=== PATIENT | male | born 1930 | race African-American/Black ===

== ENCOUNTER 2016-08-15 10:29 | Emergency (ER) | payer MEDICARE, OTHER ==
[2016-08-15 11:20] LABS: CKMB 1.8 ng/mL (0-6.6); Troponin I 0.039 ng/mL (< 0.028)
[2016-08-15 11:26] LABS: ALT (SGPT) 7 U/L (0-55); AST (SGOT) 16 U/L (5-34); Albumin 4.3 g/dL (3.4-4.8); Alkaline Phosphatase 66 U/L (40-150); Anion Gap 17 mmol/L (10-20); BUN (Urea Nitrogen) 17 mg/dL (8.4-25.7); Bilirubin, Total 1.1 mg/dL (0.2-1.2); Calc. Creatinine Clearance 0 mL/min (70-130); Calcium 9.7 mg/dL (7.8-10.44); Carbon Dioxide 23 mmol/L (23-31); Chloride 103 mmol/L (98-107); Estimated GFR-MDRD 74; Glucose 95 mg/dL (83-110); Protein, Total 8.3 g/dL (5.8-8.1); Sodium 139 mmol/L (136-145)
--- NOTE | 2016-08-15 11:29 | RAD ---
CHEST ONE VIEW: History: Wheezing, dyspnea. Comparison: 06-01-10 FINDINGS: The cardiac silhouette remains enlarged and magnified. Pulmonary vasculature is upper limits of nor mal. Mediastinum is midline. No lobar consolidation or pneumothorax are apparent. panel monitor le ads overlie the chest. IMPRESSION: 1. Cardiomegaly, stable. POS: [facility]
[2016-08-15 11:32] LABS: #Eosinphils 0.1 thou/uL (0.0-0.7); #Lymphocytes 1.8 thou/uL (1.20-3.40); #Monocytes 0.3 thou/uL (0.11-0.59); #Neutrophils 1.7 thou/uL (1.40-6.50); %Basophils 1.2 % (0.0-1.0); %Eosinophils 3.6 % (0.0-10.0); %Lymphocytes 44.6 % (21.0-51.0); %Monocytes 8.3 % (0.0-10.0); %Neutrophils 42.3 % (42.0-75.0); Hemoglobin 14.7 g/dL (14.0-18.0); Mean Corpuscular Hemoglobin 29.3 pg (27.0-31.0); Mean Corpuscular Volume 91.4 fl (80.0-94.0); Mean Platelet Volume 9.8 fL (7.4-10.4); PLT Morphology Comment Appears Adequate; Platelet Count 129 thou/uL (130-400); RBC Morphology Normal; Red Blood Cell (RBC) Count 5.04 mill/uL (4.70-6.10); White Blood Cell (WBC) Count 3.9 thou/uL (4.8-10.8)
[2016-08-15 11:40] LABS: MDiff Complete? YES
[2016-08-15] MEDS ORDERED: Furosemide 20 MG/2 ML VIAL ONE ×2 (12:19→22:02)
[2016-08-15 18:52] LABS: Troponin I 0.035 ng/mL (< 0.028)
[2016-08-15 23:20] LABS: Bilirubin Negative (Negative); Blood, Urine Moderate (Negative); Clarity Cloudy (Clear); Glucose, Urine (Dipstick) Negative (Negative); Leukocyte Negative (Negative); Nitrite Negative (Negative); Protein, Urine (Dipstick) 100 mg/dL (Neg-Trace); Urobilinogen 0.2 mg/dL (0.2-1.0); pH, Urine 7.5 (5.0-9.0)
[2016-08-15 23:21] LABS: Bacteria/HPF None Seen HPF (None Seen); RBC/HPF GREATER THAN 50-TNTC HPF (0-3); Squamous Epithelial 0-3 HPF (0-3); WBC/HPF None Seen HPF (0-3)
[2016-08-15 23:23] LABS: Hemoglobin 13.8 g/dL (14.0-18.0)
[2016-08-15 23:37] LABS: Anion Gap 13 mmol/L (10-20); BUN (Urea Nitrogen) 17 mg/dL (8.4-25.7); Calc. Creatinine Clearance 0 mL/min (70-130); Calcium 9.1 mg/dL (7.8-10.44); Carbon Dioxide 29 mmol/L (23-31); Chloride 103 mmol/L (98-107); Estimated GFR-MDRD 71; Glucose 102 mg/dL (83-110); Potassium 3.5 mmol/L (3.5-5.1); Sodium 141 mmol/L (136-145)
== END 2016-08-15 23:30 | disposition short-term general hospital (02) ==
LOC: NAV ERS 10:29
DX: I11.0 Hypertensive heart disease with heart failure (principal); I50.9 Heart failure, unspecified; R00.1 Bradycardia, unspecified; R33.9 Retention of urine, unspecified; Z79.82 Long term (current) use of aspirin; Z79.899 Other long term (current) drug therapy
CPT/HCPCS: 36415; 51702; 71010; 80053; 81003; 81015; 82553; 83880; 84484; 85025; 93005; 96372; 96374; J1940